=== PATIENT | male | born 1950 ===

== ENCOUNTER → 2021-12-16 | Outpatient (CLI) | payer OTHER | LOC: LAB SHORT 09:52 | DX: E11.65 Type 2 diabetes mellitus with hyperglycemia (principal) | CPT/HCPCS: 82043 ==

== ENCOUNTER 2024-04-18 00:53 | Observation (INO) | payer OTHER ==
[~2024-04-18] VITALS: Ht 175.3 cm; Wt 78.0 kg
[~2024-04-18 00:53] MED LIST: HYDCHL25 PO; METFORMIN HCL500 M2 PO; MOBIC15 MG PO; NOVOLOG FL100 UNIT/3 SC; OMEP20ER PO; PIOGLITAZONE HC45 MG PO; Pravastatin Sod40 MG PO; ZESTRIL40 M1 PO
[2024-04-18] MEDS ORDERED: Acetaminophen650 M1 PO (01:38)
[2024-04-18] MEDS ORDERED: BISA5EC PO (01:39)
[2024-04-18] MEDS ORDERED: INSULIN GL100 UNIT/2 SC (01:40)
[2024-04-18] MEDS ORDERED: MELADOX PO (01:40)
[2024-04-18] MEDS ORDERED: NAPR500EC PO (01:41)
[2024-04-18] MEDS ORDERED: B-1100 M2 PO (01:42)
[2024-04-18 02:16] LABS: BASOPHILS ABSOLUTE AUTO 0.04 K/mm3 (0.00-0.23); BASOPHILS PERCENT AUTO 0 % (0-2); EOSINOPHILS ABSOLUTE AUTO 0.25 K/mm3 (0.00-0.68); EOSINOPHILS PERCENT AUTO 3 % (0-6); Hematocrit 41.8 % (37.0-53.0); Hemoglobin 13.8 g/dL (13.5-17.5); IMMATURE GRAN ABSOLUTE AUTO 0.03 K/mm3 (0.00-0.10); IMMATURE GRAN PERCENT AUTO 0 % (0-1); LYMPHOCYTES ABSOLUTE AUTO 2.26 K/mm3 (0.84-5.20); LYMPHOCYTES PERCENT AUTO 24 % (21-46); MONOCYTES ABSOLUTE AUTO 1.02 K/mm3 (0.16-1.47); MONOCYTES PERCENT AUTO 11 % (4-13); Mean Corpuscular HGB 27.7 pg (26.0-34.0); Mean Corpuscular Volume 84 fL (80-100); Mean Platelet Volume 10.4 fL (9.1-12.4); NEUTROPHILS ABSOLUTE AUTO 5.72 K/mm3 (1.96-9.15); NEUTROPHILS PERCENT AUTO 62 % (41-73); Platelet Count 265 K/mm3 (150-400); RDW Coefficient Variation 15.3 % (11.7-14.2); RDW Standard Deviation 46.2 fL (35.1-46.3); Red Blood Cell Count 4.98 M/mm3 (4.30-5.90); White Blood Cell Count 9.32 K/mm3 (4.00-11.30)
[2024-04-18 02:19] LABS: Ethanol (Alcohol), Blood, Med 3 mg/dL; Salicylate <1.7 mg/dL (2.8-20.0)
[2024-04-18 02:23] LABS: Acetaminophen, Random <2.0 ug/mL (10.0-30.0); Alanine Aminotransfer (ALT/SGP 16 U/L (12-78); Albumin, Blood 3.7 g/dL (3.4-5.0); Albumin/Globulin Ratio 0.9 (0.8-1.8); Alk Phos 127 U/L (50-136); Anion Gap 14 mmol/L (3-11); Aspartate Aminotrans (AST/SGOT 10 U/L (12-37); Bilirubin, Total 0.7 mg/dL (0.1-1.0); Blood Urea Nitrogen 17 mg/dL (8-24); Bun/Creatinine Ratio 20.4 (12.0-20.0); CO2, Blood 23 mmol/L (21-32); Calcium, Blood 9.4 mg/dL (8.5-10.1); Chloride, Blood 107 mmol/L (98-108); Creatinine, Blood 0.83 mg/dL (0.60-1.20); Globulin, Blood 4.2 g/dL (2.2-4.0); Glomerular Filtration Rate 92 (60-); Glucose, Blood 224 mg/dL (70-99); Potassium, Blood 3.9 mmol/L (3.5-5.5); Sodium, Blood 140 mmol/L (136-145); Total Protein, Blood 7.9 g/dL (6.4-8.2)
[2024-04-18 05:41] LABS: Source, Urine Clean Catch
[2024-04-18 05:51] LABS: Appearance, Urine Hazy (Clear); Bilirubin, Urine Neg (Neg); Blood, Urine Neg (Neg); Color, Urine Yellow (P-Yellow); Glucose Qualitative, Urine Neg (Neg); Ketones, Urine Neg (Neg); Leukocyte Esterase, Urine 2+ (Neg); Nitrite, Urine Pos (Neg); Protein, Urine Neg (Neg); Specific Gravity, Urine 1.015 (1.003-1.022); Urobilinogen, Urine NORM (Normal)
[2024-04-18 05:59] LABS: White Blood Cells, Urine 25-50 /hpf (0-5)
[2024-04-18 06:00] LABS: Bacteria Many /hpf; Squamous Epithelial Cells Few /hpf (Few)
[2024-04-18 06:01] LABS: Mucus Light (0-Heavy)
[2024-04-18 06:05] LABS: U Amphetamine Screen Not Detected; U Barbituate Screen Not Detected; U Benzodiazapine Screen Not Detected; U Buprenorphine Screen Not Detected; U Cannabinoids Screen Not Detected; U Cocaine Screen Not Detected; U Methadone Screen Not Detected; U Methamphetamine Screen Not Detected; U Opiates Screen Not Detected; U Oxycodone Screen Not Detected; U Phencyclidine Screen Not Detected
[2024-04-18] MEDS ORDERED: Cephalexin Monohydrate 500 MG Cap PO ONE ×2 (06:10→08:00)
[2024-04-18] MEDS ORDERED: CEPH500 PO (06:10)
[2024-04-18 10:20] VITALS: BP 143/86
[2024-04-18] MEDS ORDERED: FLUoxetine HCL 20 MG CAP PO ONE (11:45)
[2024-04-19] MEDS ORDERED: FLUoxetine HCL 20 MG CAP PO SCH (09:00)
== END 2024-04-19 17:58 | disposition home or self-care (01) ==
LOC: ER 00:53 → EOR 00:54
PROVIDERS: ADMIT Emergency Medicine
DX: R45.851 Suicidal ideations (principal); E11.9 Type 2 diabetes mellitus without complications; Z79.4 Long term (current) use of insulin; Z79.84 Long term (current) use of oral hypoglycemic drugs; Z79.899 Other long term (current) drug therapy
CPT/HCPCS: 36415; 80053; 81001; 82947; 84443; 85025; 86592; 87077; 87086; 87186; 93005; 93010; 99285-25; A9270; G0378; G0480

== ENCOUNTER 2024-06-24 09:25 | Inpatient (IN) | payer OTHER ==
[~2024-06-24] VITALS: Ht 175.3 cm; Wt 81.7 kg
[~2024-06-24 09:25] MED LIST changes: +Acetaminophen650 M1 PO; +B-1100 M2 PO; +BASAGLAR K100 UNIT/5 SC; +BISA5EC PO; +CEPH500 PO; +HUMALOG KW100 UNIT/1 SC; +MELADOX PO; +NAPR500EC PO; -NOVOLOG FL100 UNIT/3 SC; +Prozac20 MG PO
[2024-06-24 10:46] LABS: BASOPHILS ABSOLUTE AUTO 0.05 K/mm3 (0.00-0.23); BASOPHILS PERCENT AUTO 0 % (0-2); EOSINOPHILS ABSOLUTE AUTO 0.19 K/mm3 (0.00-0.68); EOSINOPHILS PERCENT AUTO 2 % (0-6); Hematocrit 39.8 % (37.0-53.0); Hemoglobin 13.9 g/dL (13.5-17.5); IMMATURE GRAN PERCENT AUTO 1 % (0-1); LYMPHOCYTES ABSOLUTE AUTO 1.47 K/mm3 (0.84-5.20); LYMPHOCYTES PERCENT AUTO 11 % (21-46); MONOCYTES PERCENT AUTO 9 % (4-13); Mean Corpuscular HGB 28.9 pg (26.0-34.0); Mean Corpuscular HGB Conc 34.9 g/dL (31.5-36.5); Mean Corpuscular Volume 83 fL (80-100); Mean Platelet Volume 10.1 fL (9.1-12.4); NEUTROPHILS ABSOLUTE AUTO 10.05 K/mm3 (1.96-9.15); NEUTROPHILS PERCENT AUTO 77 % (41-73); Platelet Count 215 K/mm3 (150-400); RDW Coefficient Variation 13.6 % (11.7-14.2); Red Blood Cell Count 4.81 M/mm3 (4.30-5.90); White Blood Cell Count 13.06 K/mm3 (4.00-11.30)
[2024-06-24] MEDS ORDERED: Morphine Sulfate 4 MG/1 ML Injection IV ONE (11:10)
[2024-06-24] MEDS ORDERED: Ondansetron HCl 2 MG / ML 2ML Vial IV ONE (11:10)
[2024-06-24 11:15] LABS: Albumin, Blood 3.2 g/dL (3.4-5.0); Albumin/Globulin Ratio 0.8 (0.8-1.8); Bilirubin, Total 0.5 mg/dL (0.1-1.0); Bun/Creatinine Ratio 26.6 (12.0-20.0); Creatinine, Blood 0.94 mg/dL (0.60-1.20); Globulin, Blood 3.8 g/dL (2.2-4.0); Potassium, Blood 4.2 mmol/L (3.5-5.5)
[2024-06-24] MEDS ORDERED: HYDROmorphone HCl/Pf 1MG SYR IV ONE (11:55)
[2024-06-24] MEDS ORDERED: FLU VACC TS2024-25(6MOS UP)/PF 45 MCG/0.5 ML SYRINGE IM SCH (14:50)
[2024-06-24] MEDS ORDERED: Morphine Sulfate 4 MG/1 ML Injection IV PRN (14:50)
[2024-06-24] MEDS ORDERED: Acetaminophen 325 MG TABLET PO PRN (14:50)
[2024-06-24] MEDS ORDERED: Ondansetron HCl 2 MG / ML 2ML Vial IV PRN (14:50)
[2024-06-24] MEDS ORDERED: OxyCODONE HCL 5 MG TAB PO PRN (14:50)
[2024-06-24] MEDS ORDERED: Ondansetron 4 MG TAB PO PRN (14:50)
[2024-06-24] MEDS ORDERED: Temazepam 15 MG Cap PO PRN (14:50)
[2024-06-24 15:56] VITALS: BP 156/107
--- NOTE | 2024-06-24 15:58 | NUR ---
Pt arrived to floor via gourney. Slid onto hospital bed. States pain increases with movement. PPP. A&O x4. Pleasent mood. Removed personal clothing and redressed in hospital gown. Bed in lowest position. Call light within reach.
[2024-06-24] MEDS ORDERED: Insulin Human Lispro 100 Units/ML 3ML Syringe SC SCH (16:30)
--- NOTE | 2024-06-24 18:29 | NUR ---
Shift Summary: No acute changes since arrival to the floor. VSS. PPP.
[2024-06-24 19:33] VITALS: BP 166/95
[2024-06-24] MEDS ORDERED: Insulin Glargine-Yfgn 100 Unit/mL 3 ML SYR SC SCH ×2 (21:00)
[2024-06-24] MEDS ORDERED: Famotidine 20 MG Tab PO SCH (21:00)
[2024-06-24] MEDS ORDERED: Heparin Sodium,Porcine 5,000 UNIT/0.5 ML SDV SC SCH (21:00)
[2024-06-24 22:29] VITALS: BP 150/81
[2024-06-25] VITALS (18 sets, daily range): BP systolic 79–169; BP diastolic 52–92
[2024-06-25] MEDS ORDERED: Lactated Ringer's 1,000 ML IV SCH ×2 (04:15→12:50)
[2024-06-25 05:21] LABS: BASOPHILS ABSOLUTE AUTO 0.03 K/mm3 (0.00-0.23); BASOPHILS PERCENT AUTO 0 % (0-2); EOSINOPHILS ABSOLUTE AUTO 0.19 K/mm3 (0.00-0.68); EOSINOPHILS PERCENT AUTO 2 % (0-6); Hematocrit 41.3 % (37.0-53.0); Hemoglobin 14.2 g/dL (13.5-17.5); IMMATURE GRAN ABSOLUTE AUTO 0.06 K/mm3 (0.00-0.10); IMMATURE GRAN PERCENT AUTO 1 % (0-1); LYMPHOCYTES ABSOLUTE AUTO 1.01 K/mm3 (0.84-5.20); LYMPHOCYTES PERCENT AUTO 9 % (21-46); MONOCYTES ABSOLUTE AUTO 1.47 K/mm3 (0.16-1.47); MONOCYTES PERCENT AUTO 13 % (4-13); Mean Corpuscular HGB 29.3 pg (26.0-34.0); Mean Corpuscular HGB Conc 34.4 g/dL (31.5-36.5); Mean Corpuscular Volume 85 fL (80-100); Mean Platelet Volume 10.5 fL (9.1-12.4); NEUTROPHILS PERCENT AUTO 75 % (41-73); Platelet Count 212 K/mm3 (150-400); RDW Coefficient Variation 13.6 % (11.7-14.2); RDW Standard Deviation 41.7 fL (35.1-46.3); Red Blood Cell Count 4.85 M/mm3 (4.30-5.90); White Blood Cell Count 11.26 K/mm3 (4.00-11.30)
[2024-06-25 05:54] LABS: Bun/Creatinine Ratio 26.2 (12.0-20.0); Calcium, Blood 9.3 mg/dL (8.5-10.1); Creatinine, Blood 0.95 mg/dL (0.60-1.20); Potassium, Blood 3.9 mmol/L (3.5-5.5)
--- NOTE | 2024-06-25 07:39 | NUR ---
SHIFT SUMMARY NOC. PT ADMIT FOR L HIP FX. PT A/O X4 BUT BECOMES DROWSY AFTER IV MORPHINE FOR PAIN. PT PAIN DIFFICULT TO CONTROL WHILE AWAKE. PT CONNECTED TO BIOX, NO DESAT EVENTS. PT INCONTINENT OF URINE. PT NPO SINCE 0000. CALL LIGHT IN REACH.
[2024-06-25] MEDS ORDERED: FLUoxetine HCL 20 MG CAP PO SCH (09:00)
--- NOTE | 2024-06-25 13:10 | NUR ---
PT TO SDS ON BED FOR LEFT HIP PERC. PIN. PT JUST VOIDED. PT C/O RECENT "SNIFFLES" Pre-Op teaching done. Pt verbalizes understanding. History, Chart, Medications and Allergies reviewed before start of procedure.Patient confirms NPO status and agrees with scheduled surgery.
[2024-06-25] MEDS ORDERED: propofoL 20 ML IV ONE (13:29)
[2024-06-25] MEDS ORDERED: Morphine Sulfate 4 MG/1 ML Injection ONE (13:39)
[2024-06-25] MEDS ORDERED: CeFAZolin Sodium 2,000 MG in NS 100 ML IV SCH ×2 (13:50→20:30)
[2024-06-25] MEDS ORDERED: Tranexamic Acid 100 ML IV SCH (13:50)
[2024-06-25] MEDS ORDERED: propofoL 50 ML IV ONE (14:14)
[2024-06-25] MEDS ORDERED: EpiNEPhrine 1 MG/1 ML 1ML Vial ONE (14:20)
[2024-06-25] MEDS ORDERED: Bupivacaine 0.5% HCl 5 MG/ML 30MLVIAL ONE (14:20)
--- NOTE | 2024-06-25 14:57 | NUR ---
06/25/24 1457 Marija Holley SPINAL BLOCK COMPLETED BY CHANTEL PADRON UPON ENTRY TO OR.
[2024-06-25] MEDS ORDERED: Phenylephrine HCl 100 MCG/ML-NS 10MLSYR (1MG/10ML) ONE (14:58)
--- NOTE | 2024-06-25 19:30 | NUR ---
SHIFT SUMMARY POD0 L PERC PINNING, A/OX4, VSS, TOLERATING PO, NOT OOB POST OPERATIVELY YET, NO POST OP VOID YET, DENIES PAIN SINCE ARRIVING TO THE FLOOR FROM PACU, HE HAS HAD SOME FLIGHTS OF IDEAS AROUND DINNER TIME BUT NOTHING ELSE IN THIS REGARD.NO OTHER EVENTS THIS SHIFT, CALL LIGHT IN REACH.
[2024-06-26 04:13] VITALS: BP 144/74
[2024-06-26 04:32] LABS: BASOPHILS ABSOLUTE AUTO 0.04 K/mm3 (0.00-0.23); BASOPHILS PERCENT AUTO 0 % (0-2); EOSINOPHILS ABSOLUTE AUTO 0.32 K/mm3 (0.00-0.68); EOSINOPHILS PERCENT AUTO 3 % (0-6); Hematocrit 38.6 % (37.0-53.0); IMMATURE GRAN ABSOLUTE AUTO 0.05 K/mm3 (0.00-0.10); IMMATURE GRAN PERCENT AUTO 1 % (0-1); LYMPHOCYTES ABSOLUTE AUTO 1.37 K/mm3 (0.84-5.20); LYMPHOCYTES PERCENT AUTO 14 % (21-46); MONOCYTES PERCENT AUTO 16 % (4-13); Mean Corpuscular HGB 28.8 pg (26.0-34.0); Mean Corpuscular HGB Conc 33.7 g/dL (31.5-36.5); Mean Corpuscular Volume 85 fL (80-100); Mean Platelet Volume 10.3 fL (9.1-12.4); NEUTROPHILS ABSOLUTE AUTO 6.52 K/mm3 (1.96-9.15); NEUTROPHILS PERCENT AUTO 66 % (41-73); Platelet Count 180 K/mm3 (150-400); RDW Coefficient Variation 13.5 % (11.7-14.2); RDW Standard Deviation 42.1 fL (35.1-46.3); Red Blood Cell Count 4.52 M/mm3 (4.30-5.90)
[2024-06-26 04:55] LABS: Albumin, Blood 2.8 g/dL (3.4-5.0); Albumin/Globulin Ratio 0.7 (0.8-1.8); Bun/Creatinine Ratio 22.3 (12.0-20.0); Calcium, Blood 8.9 mg/dL (8.5-10.1); Creatinine, Blood 1.03 mg/dL (0.60-1.20); Globulin, Blood 3.8 g/dL (2.2-4.0); Potassium, Blood 3.9 mmol/L (3.5-5.5); Total Protein, Blood 6.6 g/dL (6.4-8.2)
--- NOTE | 2024-06-26 05:36 | NUR ---
SHIFT SUMMARY NOC. PT POD 1 FOR LEFT HIP PINNING. PT A/O X4, AQUACEL C/D/I. PT MEDICATED FOR PAIN WITH REPORTED RELIEF. PT VOIDING URINE AND INCONTINENT AT TIMES. PT TOLERATING PO INTAKE. BED IN LOWEST POSITION. CALL LIGHT IN REACH.
[2024-06-26 07:22] VITALS: BP 140/67
[2024-06-26] MEDS ORDERED: Aspirin 81 MG TabEC PO SCH (09:00)
[2024-06-26] MEDS ORDERED: Polyethylene Glycol 3350 17 gm PO PRN (11:05)
[2024-06-26 17:20] VITALS: BP 116/64
--- NOTE | 2024-06-26 18:13 | NUR ---
SHIFT SUMMARY WORKED w/ THERAPY TODAY. SPENT DAY IN RECLINER CHAIR ALTERNATING BETWEEN SITTING & RECLINING. PAIN REASONABLY CONTROLLED. EATING, DRINKING, & VOIDING.
[2024-06-26 19:17] VITALS: BP 127/72
[2024-06-26 19:25] LABS: SARS-Cov-2 (COVID-19) PCR, MMC NEGATIVE (NEGATIVE)
[2024-06-26] MEDS ORDERED: Docusate Sodium 100 MG Cap PO SCH (21:00)
[2024-06-26] MEDS ORDERED: Sennosides 8.6 MG Tab PO SCH (21:00)
[2024-06-27 02:47] VITALS: BP 138/83
--- NOTE | 2024-06-27 05:27 | NUR ---
SHIFT SUMMARY. SHIFT HAS BEEN UNREMARKABLE. PT AOX3, PLEASANT, COOPERATIVE WITH CARE, CALLS APPROPRIATELY, ABLE TO MAKE NEEDS KNOWN. HAS BEEN ABLE TO REST COMFORTABLY THROUGHOUT MOST OF SHIFT. PT MOSTLY ORIENTED WITH CONCRETE THOUGHT PROCESS BUT IS VERY FORGETFUL AND AT TIMES MAKES ODD COMMENTS INDICATING FLUCTATING MENTATION OVERNIGHT. BEDREST THROUGHOUT SHIFT ALTHOUGH HAS BEEN ABLE TO REPOSITION SELF INDEPENDENTLY. PRIMARILY INCONTINENT, AT TIMES ABLE TO USE URINAL TO VOID WITH ASSISTANCE. LEFT HIP DRESSING REMAINS C/D/I. PAIN ADEQUATELY MANAGED VIA EMAR. VITALS STABLE. ABLE TO TAKE PILLS WHOLE WITH WATER. BED LOCKED IN LOWEST POSITION. CALL LIGHT LEFT WITHIN REACH. CONTINUING TO MONITOR.
[2024-06-27 07:23] VITALS: BP 135/74
[2024-06-27] MEDS ORDERED: Aspir 8181 MG PO (09:54)
[2024-06-27] MEDS ORDERED: COLACE100 MG PO (10:03)
[2024-06-27] MEDS ORDERED: OXYC5 PO (10:04)
[2024-06-27] MEDS ORDERED: MIRALAX17 GM PO (10:04)
[2024-06-27 11:37] VITALS: BP 148/74
--- NOTE | 2024-06-27 13:08 | NUR ---
VSS, A-Ox3 disoriented to situation at times, pt shows signs of anxiety and depression, ambulates to chair with 2x assist, denies SOB, states 8 out of 10 pain that was well managed with prn oxycodone, on RA. Lungs diminished, heart regular, bowel sounds normaitive, L hip dressing C/D/I, neuro intact. Pt D/C at 1235, report given to Denice, safety ensured.
== END 2024-06-27 12:41 | DRG 481 ==
LOC: ER 09:25 → SURS 14:45
PROVIDERS: Emergency Medicine; Orthopaedic Surgery Sports Medicine; ADMIT Internal Medicine
PROC: 0QS734Z Reposition Left Upper Femur with Internal Fixation Device, Percutaneous Approach (ICD-10-PCS; principal; 2024-06-25 13:30)
DX: S72.002A Fracture of unspecified part of neck of left femur, initial encounter for closed fracture (principal); F33.9 Major depressive disorder, recurrent, unspecified; K21.9 Gastro-esophageal reflux disease without esophagitis; E78.5 Hyperlipidemia, unspecified; N18.30 Chronic kidney disease, stage 3 unspecified; E11.22 Type 2 diabetes mellitus with diabetic chronic kidney disease; I12.9 Hypertensive chronic kidney disease with stage 1 through stage 4 chronic kidney disease, or unspecified chronic kidney disease; Z91.040 Latex allergy status; Z79.4 Long term (current) use of insulin; Z79.899 Other long term (current) drug therapy; W18.30XA Fall on same level, unspecified, initial encounter; Y92.481 Parking lot as the place of occurrence of the external cause
CPT/HCPCS: 36415; 73502; 80048; 80053; 82947; 85025; 93005; 93010; 94762; 96374; 96375; 97110; 97162; 97166; 97530; 99285-25; A9270; C1713; C1769; J0171; J0690; J1170; J1644; J1815; J2270; J2371; J2405; J2704; J7120; U0002

== ENCOUNTER 2025-03-26 07:30 | Inpatient (IN) | payer OTHER ==
[2025-03-26] VITALS (10 sets, daily range): BP systolic 112–137; BP diastolic 58–83
[~2025-03-26] VITALS: Ht 172.7 cm; Wt 78.1 kg
[~2025-03-26 07:30] MED LIST changes: +ASPIR 8181 M1 PO; +Aspir 8181 MG PO; +COLACE100 MG PO; +HUMALOG100 UNIT/1; +INSULANPEN; +MELO7.5 PO; +MIRALAX17 GM PO; +OXYC5 PO; +TRAM50 PO
[2025-03-26] MEDS ORDERED: Chlorhexidine Mouth Care 15 ML UDC MT SCH (09:50)
[2025-03-26] MEDS ORDERED: CeFAZolin Sodium 2,000 MG in NS 100 ML IV SCH ×2 (09:50→20:00)
--- NOTE | 2025-03-26 10:30 | NUR ---
INTO SDS VIA WHEELCHAIR. PT REPORTS 8/10 LEFT HIP PAIN. HISTORY AND ALLERGIES REVIEWED. LUNGS CLEAR. VS WDL-12 LEAD ECG DONE. NPO STATUS CONFIRMED. PT HAS NO FAMILY THAT HE WANTS CONTACTED POST PROCEDURE. HE CURRENTLY RESIDES AT [facility]. PT WHEELCHAIR AND TWO BAGS OF CLOTHING SENT TO ROOM 218.CBC,CHEM PROFILE DRAWN WITH IV START AND SENT TO LAB.
[2025-03-26] MEDS ORDERED: Tranexamic Acid 100 ML IV SCH (10:50)
[2025-03-26] MEDS ORDERED: DiphenhydrAMINE HCl 50 MG/ML 1ML Vial ONE (11:02)
[2025-03-26 11:09] LABS: BASOPHILS ABSOLUTE AUTO 0.05 K/mm3 (0.00-0.23); BASOPHILS PERCENT AUTO 1 % (0-2); EOSINOPHILS ABSOLUTE AUTO 0.23 K/mm3 (0.00-0.68); EOSINOPHILS PERCENT AUTO 2 % (0-6); Hematocrit 40.1 % (37.0-53.0); Hemoglobin 13.4 g/dL (13.5-17.5); IMMATURE GRAN ABSOLUTE AUTO 0.04 K/mm3 (0.00-0.10); IMMATURE GRAN PERCENT AUTO 0 % (0-1); LYMPHOCYTES ABSOLUTE AUTO 1.81 K/mm3 (0.84-5.20); LYMPHOCYTES PERCENT AUTO 18 % (21-46); MONOCYTES ABSOLUTE AUTO 1.13 K/mm3 (0.16-1.47); MONOCYTES PERCENT AUTO 11 % (4-13); Mean Corpuscular HGB Conc 33.4 g/dL (31.5-36.5); Mean Corpuscular Volume 85 fL (80-100); NEUTROPHILS ABSOLUTE AUTO 6.91 K/mm3 (1.96-9.15); NEUTROPHILS PERCENT AUTO 68 % (41-73); NRBC ABSOLUTE 0.00 K/mm3 (0.00-0.02); NRBC Auto 0.0 /100 WBC (0.0-0.2); Platelet Count 243 K/mm3 (150-400); RDW Coefficient Variation 14.7 % (11.7-14.2); RDW Standard Deviation 45.5 fL (35.1-46.3)
[2025-03-26] MEDS ORDERED: DiphenhydrAMINE HCl 50 MG/ML 1ML Vial IV ONE (11:10)
--- NOTE | 2025-03-26 11:10 | NUR ---
SHORTLY AFTER STARTING VANCOMYCIN, PT FACE BECAME VERY RED IN APPEARANCE AND PT BEGAN CLEARING HIS THROAT. PT STATES "I FEEL FUNNY!" VANCOMYCIN STOPPED AND PT MED WITH BENADRYL 25 MG IVP X 1 AND SOLUMEDROL 125 MG.
[2025-03-26 11:21] LABS: Alanine Aminotransfer (ALT/SGP 16.0 U/L (12-78); Albumin, Blood 3.4 g/dL (3.4-5.0); Albumin/Globulin Ratio 0.8 (0.8-1.8); Anion Gap 7.0 mmol/L (3-11); Aspartate Aminotrans (AST/SGOT 11.0 U/L (12-37); Bilirubin, Total 0.7 mg/dL (0.1-1.0); Blood Urea Nitrogen 25.0 mg/dL (8-24); CO2, Blood 27.0 mmol/L (21-32); Calcium, Blood 9.4 mg/dL (8.5-10.1); Chloride, Blood 104.0 mmol/L (98-108); Creatinine, Blood 0.89 mg/dL (0.60-1.20); Globulin, Blood 4.3 g/dL (2.2-4.0); Glucose, Blood 212.0 mg/dL (70-99); Potassium, Blood 4.0 mmol/L (3.5-5.5); Sodium, Blood 134.0 mmol/L (136-145); Total Protein, Blood 7.7 g/dL (6.4-8.2)
[2025-03-26] MEDS ORDERED: FentaNYL Citrate 50 MCG/ML 2 ML Injection ONE ×2 (11:22→13:19)
[2025-03-26] MEDS ORDERED: Rocuronium Bromide 10 MG/ML 5ML Injection IV ONE (11:25)
--- NOTE | 2025-03-26 11:25 | NUR ---
PT FACE IS NO LONGER RED. PT STATES "I FEEL SO MUCH BETTER." PT HAD REPORTED THAT HIS THROAT FELT TIGHT PRIOR TO BENADRYL ADMINISTRATION. SINCE MED WITH BENADRYL AND SOLUMEDROL, PT DENIES THROAT TIGHTNESS AND HE IS NO LONGER CLEARING HIS THROAT.
[2025-03-26] MEDS ORDERED: Phenylephrine HCl 100 MCG/ML-NS 10MLSYR (1MG/10ML) ONE (11:27)
[2025-03-26] MEDS ORDERED: Ropivacaine 0.5% HCl/Pf 123.125 MG,EPINEPHrine HCL 0.25 MG,Ketorolac Tromethamine 15 MG... INFIL SCH (11:45)
[2025-03-26] MEDS ORDERED: ePHEDrine Sulfate 50 MG/ML 1ML Injection ONE (12:14)
[2025-03-26] MEDS ORDERED: Ondansetron HCl 2 MG / ML 2ML Vial IV PRN ×2 (12:25→14:45)
[2025-03-26] MEDS ORDERED: FentaNYL Citrate 50 MCG/ML 2 ML Injection IV PRN ×2 (12:25→12:30)
[2025-03-26] MEDS ORDERED: Labetalol HCL 5 MG/ML 4ML Injection (Single Dose) IV PRN (12:25)
[2025-03-26] MEDS ORDERED: HYDROmorphone HCl/Pf 1MG SYR IV PRN ×2 (12:30)
[2025-03-26] MEDS ORDERED: Vancomycin HCl 1000 MG ADDvantage ONE (12:58)
[2025-03-26] MEDS ORDERED: Sugammadex Sodium 200 MG/2ML SDV (100 MG/ML) ONE (13:15)
[2025-03-26] MEDS ORDERED: NS 250 ML IV PRN (14:40)
--- NOTE | 2025-03-26 14:42 | NUR ---
ARRIVAL TO UNIT PATIENT TRANSFERRED TO UNIT FROM PACU POST L ABISAI HIP AT APPROX 1400. PATIENT ALERT - LETHARGIC. ABLE TO REPORT NAME/DATE OF AND LOCATION. DIFFICULTY REPORTING EVENTS LEADING TO PROCEDURE. VSS. DENIES PAIN. MD GREENE CONTACTED BY [facility] MEDICINE PRACTITIONER ERIC FOR ORDERS. ADMITTING STATUS IS EXTENDED RECOVERY. PER MD GREENE - PLAN TO DC BACK TO [facility] TOMORROW. AQUACEL DRESSING C/D/I. PPP. CAP REFILL <3 SECONDS. DENIES N/V - IVF INFUSING TO GRAVITY. SMALL SNACKS AND WATER WITHIN REACH. BASELINE URINARY INCONTINENCE - MALE PW PLACED. BED ALARM ON. CALL LIGHT IN REACH.
[2025-03-26] MEDS ORDERED: Insulin Human Lispro 100 Units/ML 3ML Syringe SC SCH (16:30)
--- NOTE | 2025-03-26 17:37 | NUR ---
SHIFT SUMMARY NO ACUTE CHANGES SINCE ARRIVAL TO UNIT NOTE. PATIENT REMAINS ALERT - COMMUNICATING NEEDS EFFECTIVELY. S/P L ABISAI HIP. PPP. CAP REFILL <3 SECONDS. VSS. REPORTS MINIMAL PAIN AT THIS TIME - DENIES NEED FOR MANAGEMENT PER EMAR. AQUACEL DRESSING C/D/I. WORKED W/ PHYSICAL THERAPY - UP W/ 2P ASSIST STAND AND PIVOT. CURRENTLY IN RECLINER CHAIR. MD GREENE ROUNDING THIS EVENING - ORDER RECEIVED TO START 81MG BABY ASPIRIN BID TONIGHT. DOSE ADMINISTERED PER EMAR. PER MD, CONSULT HOSPITALIST FOR CHANGES IN STATUS OVERNIGHT. NURSE NOTIFY IN PLACE. PW DEVICE REMOVED PER PATIENT REQUEST. USES URINAL W/ MINIMAL ASSIST FOR STAFF. TOLERATING PO INTAKE. CHAIR ALARM ON. CALL LIGHT IN REACH.
--- NOTE | 2025-03-26 21:01 | NUR ---
PHYSICIAN COMMUNICATION HS CBG @389, PT GIVEN 4U HUMALOG PER EMAR ORDERS. INFORMED VINNIE Fernandez OF INCREASED CBG TONIGHT. HE STATED TO NOT DO ANYTHING TONIGHT & INFORM [facility] IN AM. WILL INFORM PRIMARY RN
--- NOTE | 2025-03-27 04:08 | NUR ---
SHIFT SUMMARY KOBI WAS ALERT AND FULLY ORIENTED ON ASSESSMENT. PT DENIES PAIN, NAUSEA, SOB, AND CHEST PRESSURE. PEDAL PULSES PAPLABLE, SENSATION / CIRCULAITON INTACT. DRESSING TO L HIP C/D/I. PT VOIDING APPROPRIATELY AND HAS WORKED WITH THERAPY. WILL LIKELY DISCHARGE IN AM. NO ACUTE EVENTS TONIGHT. NO NOTED CHANGES TO PT CONDITION.
[2025-03-27 04:38] VITALS: BP 139/80
[2025-03-27 04:39] VITALS: BP 139/80
[2025-03-27 07:21] VITALS: BP 136/70
--- NOTE | 2025-03-27 12:57 | NUR ---
DISCHARGE REPORT GIVEN TO ELLEN AT [facility]. IV DC'D. PT LEFT WITH PERSONAL BELONGINGS INCLUDING W/C. DISCHARGE PACKET SENT WITH TRANSPORT.
== END 2025-03-27 12:50 | DRG 522 ==
LOC: SURS 08:58
PROVIDERS: Anesthesiology; ADMIT Orthopaedic Surgery Sports Medicine
PROC: 0SRS01Z Replacement of Left Hip Joint, Femoral Surface with Metal Synthetic Substitute, Open Approach (ICD-10-PCS; principal; 2025-03-26 12:30)
PROC: 0QP704Z Removal of Internal Fixation Device from Left Upper Femur, Open Approach (ICD-10-PCS; 2025-03-26 12:30)
DX: S72.002K Fracture of unspecified part of neck of left femur, subsequent encounter for closed fracture with nonunion (principal); M17.9 Osteoarthritis of knee, unspecified; I12.9 Hypertensive chronic kidney disease with stage 1 through stage 4 chronic kidney disease, or unspecified chronic kidney disease; E11.22 Type 2 diabetes mellitus with diabetic chronic kidney disease; N18.9 Chronic kidney disease, unspecified; K21.9 Gastro-esophageal reflux disease without esophagitis; E78.5 Hyperlipidemia, unspecified; X58.XXXD Exposure to other specified factors, subsequent encounter; Z86.16 Personal history of COVID-19; Z79.82 Long term (current) use of aspirin; Z79.4 Long term (current) use of insulin; Z79.1 Long term (current) use of non-steroidal anti-inflammatories (NSAID); Z91.040 Latex allergy status
CPT/HCPCS: 73502; 80053; 82947; 85025; 87071; 87075; 87205; 93005; 93010; 94760; 97161; 97530; A9270; J0165; J0690; J0735; J1200; J1885; J2371; J2704; J2795; J2919; J3010; J3373; J7050; J7120